=== PATIENT | male | born 1965 ===

== ENCOUNTER 2022-11-23 07:30 | Day surgery (SDC) | payer OTHER ==
[~2022-11-23 07:30] MED LIST: IRON236 MG PO; LIPITOR40 MG PO; MULTIPLE VITAM1 EAC2 PO; SYNTHROID50 MCG PO
== END 2022-11-23 17:30 | disposition home or self-care (01) ==
LOC: CIR.AMB 07:30
PROVIDERS: ATTEND Colon & Rectal Surgery
DX: K64.4 Residual hemorrhoidal skin tags (principal); K64.8 Other hemorrhoids; K64.2 Third degree hemorrhoids; K92.1 Melena; Z20.822 Contact with and (suspected) exposure to COVID-19